=== PATIENT | female | born 2000 ===

== ENCOUNTER 2024-03-23 12:30 | Outpatient (CLI) | payer BC, SELFPAY | END 2024-03-23 12:31 | disposition home or self-care (01) | LOC: AMB 04-07 01:20 | PROVIDERS: Visit Provider Internal Medicine | DX: S69.91XA Unspecified injury of right wrist, hand and finger(s), initial encounter (principal); V43.62XA Car passenger injured in collision with other type car in traffic accident, initial encounter; Y92.410 Unspecified street and highway as the place of occurrence of the external cause | CPT/HCPCS: A0425; A0427 ==